=== PATIENT | female | born 2000 | race Caucasian/White ===

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

== ENCOUNTER → 2021-07-30 | Outpatient (CLI) | payer OTHER ==
[~2021-07-30] MED LIST changes: +FLUO40CA PO
[2021-07-30 15:37] LABS: HCG, SERUM QUALITATIVE NEGATIVE (NEGATIVE)
[2021-07-30 15:39] LABS: FREE T4 0.89 NG/DL (0.78-1.33)
[2021-07-30 15:40] LABS: PROLACTIN 66.5 NG/ML
== END ==
LOC: M PLALAB 12:30
PROVIDERS: ATTEND Advanced Practice Midwife
DX: N64.52 Nipple discharge (principal)

== ENCOUNTER → 2021-09-23 | Outpatient (CLI) | payer OTHER | LOC: M WHC 07:32 | PROVIDERS: ATTEND Advanced Practice Midwife | DX: N64.52 Nipple discharge (principal) ==

== ENCOUNTER → 2021-10-13 | Outpatient (CLI) | payer OTHER | LOC: M RAD 16:09 | PROVIDERS: ATTEND Physician Assistant | DX: K59.09 Other constipation (principal) ==

== ENCOUNTER 2021-10-14 07:00 | Outpatient (RCR) | payer OTHER | END 2021-10-21 | LOC: M PT 07:00 | PROVIDERS: ATTEND Physician Assistant | DX: R26.89 Other abnormalities of gait and mobility (principal) ==

== ENCOUNTER → 2022-01-20 | Outpatient (CLI) | payer OTHER ==
[2022-01-20 11:55] LABS: CORTISOL AM 16.1 UG/DL (4.3-22.4)
[2022-01-20 12:00] LABS: PROLACTIN 9.71 NG/ML
== END ==
LOC: M PLALAB 08:08
PROVIDERS: ATTEND Nurse Practitioner Family
DX: E22.1 Hyperprolactinemia (principal)

== ENCOUNTER → 2022-04-08 | Outpatient (CLI) | payer OTHER ==
[~2022-04-08] MED LIST changes: +DIPH-435 PO; -DIPH25CA32 PO; +HYDR-643; +QUET50TA4; +TRI-1TAB
== END ==
LOC: M LABSMTC 11:23
PROVIDERS: ATTEND Anesthesiology
DX: Z01.812 Encounter for preprocedural laboratory examination (principal); Z11.52 Encounter for screening for COVID-19

== ENCOUNTER → 2022-05-07 | Outpatient (CLI) | payer OTHER ==
[~2022-05-07] MED LIST changes: -HYDR-643; +HYDR-643 PO; +LACT20EL PO; -QUET50TA4; +QUET50TA4 PO; -TRI-1TAB; +TRI-1TAB PO
== END ==
LOC: M LABSMTC 10:40
PROVIDERS: ATTEND Anesthesiology
DX: Z01.812 Encounter for preprocedural laboratory examination (principal)

== ENCOUNTER → 2022-05-12 | Day surgery (SDC) | payer OTHER ==
[~2022-05-12] VITALS: Ht 160 cm; Wt 63.0 kg
[~2022-05-12] MED LIST changes: +GLYCOPYRROLATE INJ 0.2 MG/ML 2 ML VIAL As Ordered ONE; +LIDOCAINE 2% 100MG/5ML SDV (FOR ANES.) As Ordered ONE; +NS 1,000 ML IV ONE; +propofoL 200 MG/20 ML VIAL As Ordered ONE
[2022-05-12 10:45] VITALS: BP 123/84
== END | disposition home or self-care (01) ==
LOC: M OPP 08:33
PROVIDERS: ATTEND Internal Medicine Gastroenterology
DX: K59.00 Constipation, unspecified (principal); K59.39 Other megacolon; Z79.3 Long term (current) use of hormonal contraceptives; Z79.899 Other long term (current) drug therapy; Z88.0 Allergy status to penicillin

== ENCOUNTER → 2022-06-09 | Outpatient (REF) | payer OTHER ==
[~2022-06-09] MED LIST changes: -GLYCOPYRROLATE INJ 0.2 MG/ML 2 ML VIAL As Ordered ONE; -LIDOCAINE 2% 100MG/5ML SDV (FOR ANES.) As Ordered ONE; -NS 1,000 ML IV ONE; -propofoL 200 MG/20 ML VIAL As Ordered ONE
== END ==
LOC: M LAB REF 16:29
PROVIDERS: ATTEND Physician Assistant
DX: R30.0 Dysuria (principal)

== ENCOUNTER → 2022-12-15 | Outpatient (CLI) | payer OTHER | LOC: M PLALAB 15:21 | PROVIDERS: ATTEND Advanced Practice Midwife | DX: N64.3 Galactorrhea not associated with childbirth (principal) ==

== ENCOUNTER → 2023-01-31 | Outpatient (REF) | payer OTHER ==
[2023-01-31 18:02] LABS: HEMATOCRIT 39.9 % (36.0-47.0); HEMOGLOBIN 13.3 g/dl (12.0-15.5); MEAN CORPUSCULAR HEMOGLOBIN 30.3 pg (27.0-33.0); MEAN CORPUSCULAR HGB CONC 33.3 g/dl (32.0-36.5); MEAN CORPUSCULAR VOLUME 90.9 fl (80.0-96.0); PLATELET COUNT, AUTOMATED 364 10^3/uL (150-450); RED BLOOD COUNT 4.39 10^6/uL (4.00-5.40); WHITE BLOOD COUNT 9.8 10^3/uL (4.0-10.0)
[2023-01-31 18:51] LABS: ALBUMIN 3.8 G/DL (3.2-5.2); ALKALINE PHOSPHATASE 68 U/L (46-116); ALT/SGPT 14 U/L (7.0-40); AST/SGOT 15 U/L (<34); BILIRUBIN,TOTAL 0.3 MG/DL (0.3-1.2); BLOOD UREA NITROGEN 11 MG/DL (9-23); CALCIUM LEVEL 9.9 MG/DL (8.5-10.1); CARBON DIOXIDE LEVEL 26 MMOL/L (20-31); CHLORIDE LEVEL 105 MMOL/L (98-107); CHOLESTEROL LEVEL 224 MG/DL (<200); CHOLESTEROL RISK RATIO 4.07 (<5); CREATININE FOR GFR 0.53 MG/DL (0.55-1.30); GLOMERULAR FILTRATION RATE > 60.0 (>60); GLUCOSE, FASTING 86 MG/DL (60-100); LDL CHOLESTEROL 143.2 MG/DL (<100); POTASSIUM SERUM 5.4 MMOL/L (3.5-5.1); SODIUM LEVEL 139 MMOL/L (136-145); TRIGLYCERIDES LEVEL 129 MG/DL (<150)
[2023-01-31 18:59] LABS: HEMOGLOBIN A1c 5.4 % (4.0-6.0)
== END ==
LOC: M LAB REF 16:27
PROVIDERS: ATTEND Physician Assistant
DX: R73.03 Prediabetes (principal); E78.2 Mixed hyperlipidemia

== ENCOUNTER → 2023-03-01 | Outpatient (REF) | payer OTHER | LOC: M LAB REF 19:21 | PROVIDERS: ATTEND Physician Assistant | DX: R39.15 Urgency of urination (principal) ==

== ENCOUNTER → 2023-03-18 | Outpatient (CLI) | payer MEDICAID, OTHER, SELFPAY | LOC: M RAD 10:09 | PROVIDERS: ATTEND Physician Assistant | DX: K59.00 Constipation, unspecified (principal); R10.10 Upper abdominal pain, unspecified ==

== ENCOUNTER → 2023-03-22 | Outpatient (REF) | LOC: M PLAIMG 12:06 | PROVIDERS: ATTEND Internal Medicine | DX: R52 Pain, unspecified (principal) ==

== ENCOUNTER → 2023-05-02 | Outpatient (REF) | payer MEDICAID | LOC: M LAB REF 08:05 | PROVIDERS: ATTEND Physician Assistant | DX: Z12.4 Encounter for screening for malignant neoplasm of cervix (principal); R87.618 Other abnormal cytological findings on specimens from cervix uteri ==

== ENCOUNTER → 2023-08-01 | Outpatient (REF) | payer OTHER ==
[~2023-08-01] MED LIST changes: +FLUO-365 PO; -FLUO20CA22 PO
[2023-08-01 16:51] LABS: APPEARANCE, URINE CLEAR (CLEAR); BACTERIA, URINE AUTO 3+ (NEGATIVE); BILIRUBIN, URINE AUTO NEGATIVE (NEGATIVE); BLOOD, URINE BLOOD NEGATIVE (NEGATIVE); COLOR, URINE STRAW (YELLOW); GLUCOSE, URINE (UA) AUTO NEGATIVE (NEGATIVE); KETONE, URINE AUTO NEGATIVE (NEGATIVE); LEUKOCYTE ESTERASE, URINE AUTO NEGATIVE (NEGATIVE); NITRITE, URINE AUTO NEGATIVE (NEGATIVE); PROTEIN, URINE AUTO NEGATIVE (NEGATIVE); RBC, URINE AUTO 0 /HPF (0-3); SPECIFIC GRAVITY URINE AUTO 1.004 (1.002-1.035); SQUAMOUS EPITHELIAL CELL UR AU 1 /HPF (0-6); UROBILINOGEN, URINE AUTO 0.2 mg/dL (0.0-2.0); WBC, URINE AUTO 1 /HPF (0-3)
== END ==
LOC: M LAB REF 16:34
PROVIDERS: ATTEND Physician Assistant
DX: N39.0 Urinary tract infection, site not specified (principal)

== ENCOUNTER → 2023-11-29 | Outpatient (REF) | payer OTHER, MEDICAID | LOC: M LAB REF 16:03 | PROVIDERS: ATTEND Physician Assistant | DX: J02.9 Acute pharyngitis, unspecified (principal) ==

== ENCOUNTER → 2024-01-31 | Outpatient (REF) | payer OTHER, MEDICAID ==
[2024-01-31 14:31] LABS: BLOOD UREA NITROGEN 17 MG/DL (9-23); CALCIUM LEVEL 9.9 MG/DL (8.5-10.1); CARBON DIOXIDE LEVEL 28 MMOL/L (20-31); CHLORIDE LEVEL 103 MMOL/L (98-107); CHOLESTEROL LEVEL 192 MG/DL (<200); CHOLESTEROL RISK RATIO 3.73 (<5); CREATININE FOR GFR 0.62 MG/DL (0.55-1.30); GLOMERULAR FILTRATION RATE > 60.0 (>60); GLUCOSE, FASTING 88 MG/DL (60-100); HDL CHOLESTEROL 51.4 MG/DL (>40); LDL CHOLESTEROL 110.8 MG/DL (<100); NON-HDL-C 140.6 MG/DL; POTASSIUM SERUM 4.7 MMOL/L (3.5-5.1); SODIUM LEVEL 140 MMOL/L (136-145); TRIGLYCERIDES LEVEL 149 MG/DL (<150)
[2024-01-31 15:37] LABS: HEMOGLOBIN A1c 5.3 % (4.0-6.0)
== END ==
LOC: M LAB REF 13:11
PROVIDERS: ATTEND Physician Assistant
DX: E78.2 Mixed hyperlipidemia (principal); R73.03 Prediabetes

== ENCOUNTER → 2024-04-13 | Outpatient (CLI) | payer MEDICAID, OTHER | LOC: M EKG 14:04 | PROVIDERS: ATTEND Physician Assistant | DX: R00.2 Palpitations (principal) ==

== ENCOUNTER → 2024-05-10 | Outpatient (CLI) | payer MEDICAID | LOC: M RAD 09:11 | PROVIDERS: ATTEND Physician Assistant | DX: M25.561 Pain in right knee (principal) ==

== ENCOUNTER → 2024-06-06 | Outpatient (REF) | payer MEDICAID | LOC: M PLALAB 16:01 | PROVIDERS: ATTEND Advanced Practice Midwife | DX: Z12.4 Encounter for screening for malignant neoplasm of cervix (principal) ==

== ENCOUNTER 2024-06-13 09:56 | Outpatient (RCR) | payer MEDICAID | END 2024-06-20 | LOC: M PT 09:56 | PROVIDERS: ATTEND Physician Assistant | DX: M25.561 Pain in right knee (principal); M25.562 Pain in left knee ==

== ENCOUNTER → 2024-06-29 | Outpatient (REF) | payer MEDICAID | LOC: M PLALAB 09:44 | PROVIDERS: ATTEND Advanced Practice Midwife | DX: N76.0 Acute vaginitis (principal) ==

== ENCOUNTER 2024-12-10 17:08 | Inpatient (IN) | payer OTHER ==
[~2024-12-10] VITALS: Ht 160 cm; Wt 83.6 kg
[2024-12-10 17:55] LABS: PLATELET COUNT, AUTOMATED 469 10^3/uL (150-450)
[2024-12-10 18:19] LABS: ETHYL ALCOHOL (ETHANOL) < 0.003 % (0.000-0.010)
[2024-12-10 18:21] LABS: ALT/SGPT 15 U/L (7.0-40); AST/SGOT 15 U/L (<34); CALCIUM LEVEL 10.0 MG/DL (8.5-10.1); CARBON DIOXIDE LEVEL 27 MMOL/L (20-31); CHLORIDE LEVEL 102 MMOL/L (98-107); CREATININE FOR GFR 0.67 MG/DL (0.55-1.30); GLOMERULAR FILTRATION RATE > 90.0 (>60); POTASSIUM SERUM 4.3 MMOL/L (3.5-5.1); SALICYLATE LEVEL < 3.0 MG/DL (<30); SODIUM LEVEL 140 MMOL/L (136-145)
[2024-12-10 18:28] LABS: AMPHETAMINES LEVEL URINE NEGATIVE (NEGATIVE); BARBITURATES URINE NEGATIVE (NEGATIVE); COCAINE METABOLITE URINE NEGATIVE (NEGATIVE)
[2024-12-10 18:29] LABS: BENZODIAZEPINES URINE NEGATIVE (NEGATIVE); CANNABINOIDS URINE NEGATIVE (NEGATIVE); METHADONE URINE NEGATIVE (NEGATIVE); OPIATES URINE NEGATIVE (NEGATIVE); PHENCYCLIDINE URINE NEGATIVE (NEGATIVE)
[2024-12-10] MEDS ORDERED: traZODone 50 MG TAB PO PRN (23:15)
[2024-12-10] MEDS ORDERED: ACETAMINOPHEN 325 MG TAB PO PRN (23:15)
[2024-12-10] MEDS ORDERED: MAALOX 30 ML SUSP *UDC PO PRN (23:15)
[2024-12-10] MEDS ORDERED: IBUPROFEN 400 MG TAB PO PRN (23:15)
[2024-12-10] MEDS ORDERED: MOM 30 ML SUSPENSION UDC PO PRN (23:15)
[2024-12-10 23:20] LABS: URINE PREG TEST NEGATIVE (NEGATIVE)
[2024-12-11 00:26] VITALS: BP 159/85; TEMP 97.9; O2SAT 97
[2024-12-11 06:12] VITALS: BP 130/66; TEMP 97.9; O2SAT 100
[2024-12-11] MEDS ORDERED: IBUP-1764 PO (13:28)
[2024-12-11] MEDS ORDERED: LATU40TA2 PO (13:28)
[2024-12-11] MEDS ORDERED: OMEP40CA5 PO (13:28)
[2024-12-11] MEDS ORDERED: VENL75CA47 PO (13:28)
[2024-12-11] MEDS ORDERED: ACET1TAB55 PO (13:28)
[2024-12-11] MEDS ORDERED: PROP20TA72 PO (13:28)
[2024-12-11] MEDS ORDERED: HOME MED LIST COMPLETE! XX SCH (13:35)
[2024-12-11 15:06] VITALS: BP 155/76; TEMP 97.9; O2SAT 98
[2024-12-11] MEDS: VENLAFAXINE **XR** 75MG CAPSULE PO SCH (16:11)
[2024-12-11] MEDS: LURASIDONE HCL 40 MG TAB PO SCH (17:51)
[2024-12-11] MEDS: PROPRANOLOL 20 MG TAB PO SCH (20:05)
[2024-12-12 06:21] VITALS: BP 132/84; TEMP 98.1; O2SAT 99
[2024-12-12 07:34] LABS: CHOLESTEROL LEVEL 182.0 MG/DL (<200); CHOLESTEROL RISK RATIO 3.64 (<5); LDL CHOLESTEROL 118.9 MG/DL (<100); NON-HDL-C 132.1 MG/DL; TRIGLYCERIDES LEVEL 66.0 MG/DL (<150)
[2024-12-12 08:17] VITALS: BP 142/80
[2024-12-12] MEDS: FLUZONE VACCINE TRI PF(25-26) 0.5ML SYRINGE IM.IMMUN ONE (11:13)
[2024-12-12 15:29] VITALS: BP 133/81; TEMP 98.7; O2SAT 99
[2024-12-12] MEDS: QUEtiapine FUMERATE XR 50MG TABER PO SCH (20:09)
[2024-12-13 06:32] VITALS: BP 110/74; TEMP 97.8; O2SAT 99
[2024-12-13 09:14] VITALS: BP 117/75
[2024-12-13] MEDS ORDERED: QUET50TA67 PO (09:20)
[2024-12-13] MEDS ORDERED: HYDR-3363 PO (09:20)
== END 2024-12-13 12:38 | disposition home or self-care (01) | DRG 753 ==
LOC: M ED 17:08 → M ED INP 23:14 → M PSY 12-11 00:08
PROVIDERS: ADMIT Psychiatry & Neurology Neurology; ATTEND Psychiatry & Neurology Psychiatry
DX: F31.9 Bipolar disorder, unspecified (principal); R45.851 Suicidal ideations; F60.3 Borderline personality disorder; F41.1 Generalized anxiety disorder; F43.10 Post-traumatic stress disorder, unspecified; F90.9 Attention-deficit hyperactivity disorder, unspecified type; Z79.899 Other long term (current) drug therapy; Z88.8 Allergy status to other drugs, medicaments and biological substances

== ENCOUNTER 2025-01-02 13:25 | Emergency (ER) | payer MEDICAID, OTHER ==
[~2025-01-02] VITALS: Ht 160 cm; Wt 81.4 kg
[~2025-01-02 13:25] MED LIST changes: +ACET1TAB55 PO; +HYDR-3363 PO; +IBUP-1764 PO; +LATU40TA2 PO; +OMEP40CA5 PO; +PROP20TA72 PO; +QUET50TA67 PO; +VENL75CA47 PO
[2025-01-02 15:56] VITALS: BP 107/77; TEMP 99.6; O2SAT 98
== END 2025-01-02 16:49 | disposition home or self-care (01) ==
LOC: M ED 13:25 → EDBD 13:25 → M ED 16:49
DX: S93.402A Sprain of unspecified ligament of left ankle, initial encounter (principal); Y92.9 Unspecified place or not applicable; Y93.9 Activity, unspecified; Y99.9 Unspecified external cause status; W01.0XXA Fall on same level from slipping, tripping and stumbling without subsequent striking against object, initial encounter; Z88.8 Allergy status to other drugs, medicaments and biological substances; Z79.1 Long term (current) use of non-steroidal anti-inflammatories (NSAID); Z79.899 Other long term (current) drug therapy